=== PATIENT | male | born 1980 | race Caucasian/White ===

== ENCOUNTER 2022-11-16 11:05 | Outpatient (CLI) | payer MEDICAID | END 2022-11-16 11:06 | disposition critical access hospital (66) | LOC: EMS 11:05 | DX: R56.9 Unspecified convulsions (principal); R46.89 Other symptoms and signs involving appearance and behavior; R45.89 Other symptoms and signs involving emotional state; Z78.1 Physical restraint status | CPT/HCPCS: A0425; A0427; A0999 ==

== ENCOUNTER 2022-11-16 11:19 | Emergency (ER) | payer MEDICAID, OTHER ==
--- NOTE | 2022-11-16 11:31 | ED Physician Documentation ---
PD HPI SEIZURE - Stated complaint Stated Complaint: SEIZURE - History obtained from History obtained from: Patient, EMS (Medics report the patient was confused and combatitive/thrashing on their arrival. Report of seizure by coworkers. He settled thrashing and was steadily more oriented enroute.) - History of Present Illness Timing - onset: Today Witnessed: Witnessed Number of seizures: Single Description of seizure activity: Generalized Associated symptoms: None History of seizures: Prior EtOH wdrawal sz Contributing factors: EtOH withdrawal (he has long history of alchol use and has had detox/treatment several times. he states was at [facility] for 4 days and discharged with scripts for Clonidine, Keppra, and hydroxyzine for symptoms and to reduce seizure potential. He denies alcohol use the past couple of days after out of [facility].). No: Low blood sugar, Substance abuse, Fever Similar symptoms before: Diagnosis (he states he has had alcohol withdrawal seizures in the past. No seizures aside from that situations.) Recently seen: Admitted ([facility] detox facility fo 4 days, release 2 days ago with scripts and was feeling okay. Had returned to work today.) Review of Systems Constitutional: denies: Fever Nose: reports: Rhinorrhea / runny nose. denies: Congestion Throat: denies: Sore throat Cardiac: denies: Chest pain / pressure, Palpitations Respiratory: denies: Dyspnea, Cough GI: denies: Abdominal Pain Musculoskeletal: denies: Neck pain, Back pain Neurologic: reports: Seizure. denies: Altered mental status, Head injury Psychiatric: denies: Depressed, Suicidal PD PAST MEDICAL HISTORY - Past Medical History Cardiovascular: None Respiratory: None Neuro: Seizure disorder (with alcohol withdrawal in the past several times. ) Endocrine/Autoimmune: None GI: None - Present Medications Home Medications: Ambulatory Orders Medication Instructions Recorded Confirmed Levetiracetam [Keppra] 500 mg PO BID 11/16/22 11/16/22 cloNIDine [Catapres] 0.1 mg PO TID PRN 11/16/22 11/16/22 diazePAM [Valium] 5 mg PO BID #14 tablet 11/16/22 hydrOXYzine HCL [Hydroxyzine HCl] 50 mg PO TID PRN 11/16/22 11/16/22 - Allergies Allergies/Adverse Reactions: Allergies Allergy/AdvReac Type Severity Reaction Status Date / Time No Known Drug Allergies Allergy Verified 11/16/22 11:32 PD ED PE NORMAL - Vitals Vital signs reviewed: Yes - General General: Alert and oriented X 3, No acute distress, Well developed/nourished - HEENT HEENT: Moist mucous membranes, Pharynx benign - Neck Neck: Supple, no meningeal sign, No adenopathy - Cardiac Cardiac: RRR, No murmur - Respiratory Respiratory: Clear bilaterally - Abdomen Abdomen: Soft, Non tender - Derm Derm: Normal color, Warm and dry - Neuro Neuro: Alert and oriented X 3, No motor deficit, Normal speech, Other (some minimal tremor. ) Results - Vitals Vitals: Vital Signs - 24 hr 11/16/22 11/16/22 11/16/22 11:33 11:42 12:14 Temperature 36.6 C Heart Rate 92 84 78 Respiratory 23 16 22 Rate Blood Pressure 108/72 92/63 89/54 L O2 Saturation 99 98 99 11/16/22 11/16/22 13:00 14:09 Temperature Heart Rate 68 80 Respiratory 16 14 Rate Blood Pressure 100/60 101/61 O2 Saturation 99 100 Oxygen O2 Source Room air - Labs Labs: Laboratory Tests 11/16/22 11/16/22 11/16/22 11:25 12:12 12:12 WBC 6.4 RBC 4.27 L Hgb 13.8 L Hct 42.4 MCV 99.3 H MCH 32.3 H MCHC 32.5 RDW 13.3 Plt Count 165 MPV 9.4 Neut # (Auto) 4.4 Lymph # (Auto) 1.2 L [place] # (Auto) 0.7 Eos # (Auto) 0.1 Baso # (Auto) 0.0 Absolute Nucleated RBC 0.00 Nucleated RBC % 0.0 Sodium 137 Potassium 3.8 Chloride 103 Carbon Dioxide 27 Anion Gap 7.0 BUN 6 Creatinine 0.8 Estimated GFR (MDRD) 105 Glucose 68 L Calcium 9.1 Magnesium 2.3 Total Bilirubin 0.9 AST 23 ALT 17 Alkaline Phosphatase 40 L Total Protein 6.7 Albumin 3.7 Globulin 3.0 Albumin/Globulin Ratio 1.2 Lipase 46 Urine Opiates Screen NEGATIVE Ur Oxycodone Screen NEGATIVE Urine Methadone Screen NEGATIVE Ur Propoxyphene Screen NEGATIVE Ur Barbiturates Screen NEGATIVE Ur Tricyclics Screen NEGATIVE Ur Phencyclidine Scrn NEGATIVE Ur Amphetamine Screen NEGATIVE U Methamphetamines Scrn NEGATIVE U Benzodiazepines Scrn NEGATIVE Urine Cocaine Screen NEGATIVE U Cannabinoids Screen POSITIVE H Ethyl Alcohol < 5.0 PD Medical Decision Making - ED course Complexity details: reviewed results (basic electrolyes, in particular sodium and glucose, are normal. CBC is good.afebrile and without meningeal findings on exam. had not had head injury, so not concussive. ), re-evaluated patient (he is feeling okay and rested here in [place]. ), considered differential (he is about 6 days sober and was on meds for withdrawal (not benzos though).), d/w patient Social Determinants of Health: can add benzo bid to further try to reduce chances of seizure in next week. Departure - Departure Disposition: 01 Home, Self Care Clinical Impression: Alcohol withdrawal seizure Qualifiers: Complication of substance-induced condition: uncomplicated Qualified Code(s): F10.930 - Alcohol use, unspecified with withdrawal, uncomplicated Condition: Stable Record reviewed to determine appropriate education?: Yes Follow-Up: Hieu Rice MD [Primary Care Provider] - Prescriptions: diazePAM [Valium] 5 mg PO BID #14 tablet Comments: Stay well-hydrated. Continue with your current medications that had been prescribed by the detox facility. I would suggest adding diazepam twice daily for the next week to try to reduce the chance of further withdrawal seizures. Off work today and possibly tomorrow if you are not feeling completely normal. I sent your prescription to the [facility] in [place]. Discharge Date/Time: 11/16/22 14:12
[2022-11-16] MEDS ORDERED: SODIUM CHLORIDE 0.9% 1,000 ML IV STA (11:57)
[2022-11-16] MEDS ORDERED: diazePAM INJ 5 MG/ML SYRINGE IVP STA (11:57)
[2022-11-16 12:18] LABS: MUDS CUTOFF CONCENTRATIONS CUTOFF CONC BELOW:
[2022-11-16 12:22] LABS: BASOPHILS % (AUTO) 0.6 %; EOSINOPHILS # (AUTO) 0.1 10^3/uL (0.0-0.7); EOSINOPHILS % (AUTO) 1.1 %; HCT - HEMATOCRIT 42.4 % (42.0-52.0); HGB - HEMOGLOBIN 13.8 g/dL (14.0-18.0); LYMPHOCYTES # (AUTO) 1.2 10^3/uL (1.5-3.5); LYMPHOCYTES % (AUTO) 18.6 %; MEAN CORPUSCULAR HEMOGLOBIN 32.3 pg (27.0-31.0); MEAN CORPUSCULAR HGB CONC 32.5 g/dL (32.0-36.0); MEAN CORPUSCULAR VOLUME 99.3 fL (80.0-94.0); MEAN PLATELET VOLUME 9.4 fL (7.4-11.4); MONOCYTES # (AUTO) 0.7 10^3/uL (0.0-1.0); MONOCYTES % (AUTO) 10.5 %; NEUTROPHILS # (AUTO) 4.4 10^3/uL (1.5-6.6); NEUTROPHILS % (AUTO) 68.7 %; PLT - PLATELET COUNT 165 10^3/uL (130-450); RED BLOOD COUNT 4.27 10^6/uL (4.70-6.10); RED CELL DISTRIBUTION WIDTH 13.3 % (12.0-15.0); WHITE BLOOD COUNT 6.4 x10^3/uL (4.8-10.8)
[2022-11-16 12:31] LABS: AMPHETAMINE SCREEN,URINE NEGATIVE (NEGATIVE); COCAINE SCREEN URINE NEGATIVE (NEGATIVE); METHAMPHETAMINES SCREEN, URINE NEGATIVE (NEGATIVE); OPIATE SCREEN, URINE NEGATIVE (NEGATIVE); THC CANNABINOID SCREEN, URINE POSITIVE (NEGATIVE)
[2022-11-16 12:32] LABS: BARBITURATE SCREEN,UR NEGATIVE (NEGATIVE); BENZODIAZEPINES SCREEN, URINE NEGATIVE (NEGATIVE); METHADONE SCREEN, URINE NEGATIVE (NEGATIVE); OXYCODONE SCREEN, URINE NEGATIVE (NEGATIVE); PROPOXYPHENE SCREEN, URINE NEGATIVE (NEGATIVE); TRICYCLIC ANTIDEPRESSANT,URINE NEGATIVE (NEGATIVE)
[2022-11-16 12:32] LABS: ALBUMIN 3.7 g/dL (3.2-5.5); ALBUMIN/GLOBULIN RATIO 1.2 (1.0-2.2); ALKALINE PHOSPHATASE 40 IU/L (42-121); ALT ALANINE AMINOTRANSFERASE 17 IU/L (10-60); AST ASPARTATE AMINOTRANSFERASE 23 IU/L (10-42); BILIRUBIN,TOTAL 0.9 mg/dL (0.2-1.0); BUN - BLOOD UREA NITROGEN 6 mg/dL (6-20); CALCIUM 9.1 mg/dL (8.5-10.3); CARBON DIOXIDE - CO2 27 mmol/L (21-32); CHLORIDE 103 mmol/L (101-111); CREATININE 0.8 mg/dL (0.6-1.2); ETOH - ETHANOL < 5.0 mg/dL; GFR - MDRD 105 (>89); GLUCOSE 68 mg/dL (70-100); LIPASE 46 U/L (22-51); MAGNESIUM 2.3 mg/dL (1.7-2.8); POTASSIUM 3.8 mmol/L (3.5-5.0); SODIUM 137 mmol/L (135-145); TOTAL PROTEIN 6.7 g/dL (6.7-8.2)
[2022-11-16 14:10] VITALS: BP 101/61
== END 2022-11-16 14:12 | disposition home or self-care (01) ==
LOC: ED 11:19
DX: F10.930 Alcohol use, unspecified with withdrawal, uncomplicated (principal)
CPT/HCPCS: 36415; 80053; 80306; 80320; 83690; 83735; 85025; 96374; 99283